=== PATIENT | male | born 1960 | race Caucasian/White ===

== ENCOUNTER → 2017-09-03 | Outpatient (CLI) | payer BC ==
[~2017-09-03] MED LIST: ALFU10TA2 PO; ALLERGY SHOTS; BISA10SU38 PR; MEDLIST
== END | disposition home or self-care (01) ==
LOC: C.LAB 16:30
PROVIDERS: ATTEND Urology
DX: N40.3 Nodular prostate with lower urinary tract symptoms (principal); N40.1 Benign prostatic hyperplasia with lower urinary tract symptoms